=== PATIENT | female | born 1950 | race Caucasian/White ===

== ENCOUNTER 2025-04-18 06:00 | Observation (INO) | payer MEDICARE, MEDICAID ==
[2025-04-11 14:22] LABS: MEAN PLATELET VOLUME 7.8 FL (7.4-10.4); PRE OP HEMATOCRIT 41.8 % (35.0-45.0); PRE OP HEMOGLOBIN 14.0 g/dL (12.0-16.0); PRE OP PLATELET COUNT 288 X10'3 (140-440); PRE OP WHITE BLOOD COUNT 6.0 10'3 (4.8-10.8); RED CELL DISTRIBUTION WIDTH 16.6 % (11.5-14.5)
[2025-04-11 14:49] LABS: CREATININE 0.68 MG/DL (0.40-0.90); PRE OP ALT 22 U/L (30-65); PRE OP ANION GAP 4 (8-16); PRE OP AST 20 U/L (10-37); PRE OP BILIRUB, TOTAL 0.2 MG/DL (0.0-1.0); PRE OP GLUCOSE 87 MG/DL (70-104); PRE OP POTASSIUM 4.2 MMOL/L (3.4-5.1); PRE OP SODIUM 141 MMOL/L (135-145); TOTAL CARBON DIOXIDE 32.1 MMOL/L (24-32); eGFR 85 ML/MIN
[2025-04-18] VITALS (22 sets, daily range): BP systolic 112–155; BP diastolic 64–92; PULSE 88–96; RESP 12–17; TEMP 97.4–98.1; O2SAT 93–99
[~2025-04-18] VITALS: Ht 157.5 cm; Wt 70.3 kg
[~2025-04-18 06:00] MED LIST: FURO20TA4 PO; HYDR-3973 PO; POTA-206 PO
[2025-04-18] MEDS ORDERED: BUPIVAcaine/PF 2.5mg/ml (0.25%) 10ml vial ONE (06:42)
[2025-04-18] MEDS ORDERED: LIDOcaine 1% 30ml preserv. free vial ONE (06:43)
[2025-04-18] MEDS ORDERED: BUPIVAcaine 2.5mg/ml inj 50ml vial (contains preservative) ONE (07:05)
[2025-04-18] MEDS: ringers solution, lacted 1,000 ML IV SCH ×2 (07:06→07:50)
[2025-04-18] MEDS: ceFAZolin 2gm/dext,iso 50mL 50 ML IV ONE (07:07)
[2025-04-18] MEDS ORDERED: ondansetron/PF 4mg/2ml inj IV PRN ×2 (07:50→10:25)
[2025-04-18] MEDS ORDERED: fentaNYL/PF 50MCG/1 ML 2ML syringe IV PRN (07:50)
[2025-04-18] MEDS ORDERED: acetaminophen 1,000mg/100ml IV 100 ML IV PRN (07:50)
[2025-04-18] MEDS ORDERED: HYDROmorphone/PF 0.2 MG/ML SYRINGE IV PRN (07:50)
[2025-04-18] MEDS ORDERED: labetalol 20mg/4ml (5mg/ml) syringe IV PRN (07:50)
[2025-04-18] MEDS ORDERED: hydrALAZINE 20mg/ml inj. IV PRN (07:50)
[2025-04-18] MEDS ORDERED: midazolam 1 mg/ML 2ml injection ONE (07:56)
--- NOTE | 2025-04-18 08:01 | HISTORY AND PHYSICAL ---
History & Physical Providers to CC ~ History of Present Illness Reason for Admit\Complaint: Paraesophageal hernia repair History of Present Illness Interval history and physical exam Patient here today for elective repair of her paraesophageal hernia She was seen in the office greater than 30 days ago She denies any change in her past medical history (please see previous history and physical exam for all pertinent details) She is scheduled for robotic assisted, laparoscopic paraesophageal hernia repair with mesh Given her COPD and cardiac history, we will be observing her overnight Allergies: Coded Allergies: morphine (Verified Allergy, Unknown, TURN PALE AND ITCH, 04/17/25) Home Medications Home Medications Active Reported K-Dur (Potassium Chloride) 10 Meq Tab.prt.sr 1 Tab PO DAILY PRN Furosemide 20 Mg Tablet 1 Tab PO DAILY PRN Hydrocodone-Apap 10-325 Tablet (Acetaminophen/Hydrocodone Bitart) 10mg/325mg Tablet 1 Tab PO 5X/DAY PRN Exam General: 75-year-old female in no acute distress Chest: Lungs clear to auscultation bilaterally with prolonged expiratory phase Cardiovascular: Regular rate and rhythm without murmur Abdomen: Soft and nondistended Problems: (1) Paraesophageal hernia Assessment & Plan: The risks, benefits, and alternatives to a robotic assisted, laparoscopic paraesophageal hernia repair with mesh were discussed with the patient. Risks include, but are not limited to, bleeding, infection, injury to intra-abdominal structures, hernia recurrence, dysphagia and the need for additional surgical procedures. Patient verbalized understanding and wishes to proceed with surgery. We will do so today as scheduled LANNY EVANS MD Apr 18, 2025 08:01
[2025-04-18] MEDS: LIDOcaine 1% 30ml preserv. free vial IJ ONE (08:24)
[2025-04-18] MEDS: BUPIVAcaine/PF 2.5 mg/ml (0.25%) 30ml vial IJ ONE (08:25)
[2025-04-18] MEDS ORDERED: 0.9 % SODIUM CHLORIDE 10 ML VIAL ONE (08:35)
[2025-04-18] MEDS ORDERED: dexamethasone sod phosphate 4mg/ml inj. ONE (08:35)
[2025-04-18] MEDS ORDERED: propofol inj 20 ML IV ONE (08:35)
[2025-04-18] MEDS ORDERED: fentaNYL /PF 50mcg/ml 5ml ampule ONE (08:35)
[2025-04-18] MEDS ORDERED: ondansetron/PF 4mg/2ml inj ONE (08:35)
[2025-04-18] MEDS ORDERED: rocuronium 10mg/ml inj IV ONE (08:36)
[2025-04-18] MEDS ORDERED: LIDOcaine 2% (20mg/ml) 5ml vial ONE (08:36)
[2025-04-18] MEDS ORDERED: ePHEDrine 50MG/ML INJ. ONE (08:36)
[2025-04-18] MEDS: normal saline 1000ml 1,000 ML IV SCH (10:25)
[2025-04-18] MEDS: HYDROmorph/NS 0.2 mg/ml PCA 100 ML IV SCH (11:00)
[2025-04-18] MEDS: HYDROmorphone/PF 0.2 MG/ML SYRINGE IV PRN (11:22)
[2025-04-18] MEDS: fentaNYL/PF 50MCG/1 ML 2ML syringe IV PRN (11:28)
--- NOTE | 2025-04-18 12:31 | RADIOLOGY REPORT ---
CHEST RADIOGRAPH Indication: POST OP Technique: Single frontal view of the chest was obtained Comparison: None FINDINGS: Subcutaneous emphysema with possible pneumomediastinum. This could be postsurgical in nature. Possible free intraperitoneal air below the right hemidiaphragm. Subcutaneous air along the left chest wall. Correlate with surgical history. IMPRESSION: Subcutaneous emphysema with possible pneumomediastinum. This could be postsurgical in nature. Possible free intraperitoneal air below the right hemidiaphragm. Subcutaneous air along the left chest wall. Correlate with surgical history.
--- NOTE | 2025-04-18 12:48 | OPERATIVE REPORT ---
Operative Report Providers to CC CC: TYLER EVANS MD ~ Date of Procedure: Apr 18, 2025 Pre-Operative Diagnosis: paraesophageal hernia Post-Operative Diagnosis SAME as PRE-Op Procedure Performed Robotic assisted, laparoscopic paraesophageal hernia repair with mesh Surgeon: Tyler Evans MD FACS Tack Picker None Anesthesiologist: Dorothea Guzman Type of Anesthesia: General Findings: Large type 3 paraesophageal hernia with a proximally 25% of the stomach herniated above the mediastinum Wound class I Complications None Prosthetics\Implants used: Phasix mesh Estimated Blood Loss: 10 cc Specimen Removed: Hernia sac excised and discarded Description of Procedure: Patient was brought to the operating room and identified by the nursing staff and the attending physician. Patient was placed supine and general anesthesia was induced. Preoperative antibiotics were given. Carter catheter was placed. The abdomen was prepped and draped in the standard sterile fashion. At [place]'s ione, Veress needle technique was used through a stab incision to access and insufflate the abdomen. This was accomplished without incident. An optical, 12 mm trocar was used to gain access to the abdomen in the left upper quadrant under laparoscopic visualization. Additional 8.5 mm robotic trochars were placed under laparoscopic visualization in the left lateral upper abdomen, left epigastrium and right upper quadrant. Patient was placed in steep, reverse Trendelenburg position. The da Duane robotic arm was docked to the patient and instruments guided into the abdomen under laparoscopic visualization. The left lobe of the liver was lifted and the hiatus inspected. Fairly large hiatal defect was noted. There appeared to be about 25% of the stomach above the hiatal opening. An 18 inch, 0, V-Loc suture was used to sling the left lobe of the liver up to the anterior abdominal wall. With the stomach retracted towards the patient's left upper quadrant, dissection was initiated along the pars flaccida and the lesser sac was entered. The lesser omentum was divided up to the right lissette. There was not a replaced left hepatic artery. Dissection was carried in to the mediastinum. The mediastinal space was entered. Dissection was then carried posteriorly along the right lissette, taking care to leave peritoneum overlying the muscles. Once the posterior decussation was encountered, attention was then turned to the short gastric vessels. Stomach was retracted toward the patient's right and the short gastric vessels were placed on tension. The short gastric vessels were divided along the upper portion of the greater curvature, up to the phrenoesophageal ligament which was also then divided. The peritoneal reflection of the left lissette was opened and dissection carried up until the apex of the crura was reached. Dissection was carried up into the mediastinum, mobilizing the esophagus from the retrocardiac space and taking care not to injure the bilateral pleura. The entire hernia sac which was quite large, in size, was mobilized out of the mediastinum and reduced into the abdomen. Excess sac was dissected at the level of the gastroesophageal fat pad and set aside. The retroesophageal space was developed. The GE junction was retracted anteriorly and the mediastinal dissection was carried out posterior to the esophagus. Dissection continued until at least 3 cm of intra-abdominal esophagus was obtained without any retraction on the stomach. With the stomach retracted anteriorly, adequate space and visualization was obtained to allow for the crural repair. Strips of bioabsorbable, Phasix mesh were used to reinforce the crural repair. A strip of mesh was placed over each crura and used for reapproximation without tension. Attention was then turned to the gastropexy. Fundus was anchored to the upper left portion of the hiatus with full-thickness crural sutures. The suture was then run along the greater curvature creating a gastropexy to the anterior a bdominal wall. Care was taken to stay medial to the phrenic nerve and vascular bundle. About a fourth of the gastric fundus was anchored to the anterior abdominal wall. Attention was then turned to the modified Hill procedure/augmentation stitch. The angle of His was then recreated with a running, 2/0, absorbable, V-Loc suture. This was run between the fundus and the lateral border of the intra-abdominal esophagus. This suture was run up to the level of the left lissette. Gastropexy was then completed by running the midportion of the gastric fundus towards the initial gastropexy suture and anchoring the 2 together. [place] and sutures were retrieved. The da Duane robotic arm was undocked from the patient. The 12 mm port was removed and the fascial defect closed percutaneously with 0 Vicryl suture. Remaining ports were removed and the abdomen was allowed to deflate. Skin was closed at all sites with 4-0 Monocryl sutures and dressed with Dermabond. Patient was extubated and transferred to the postanesthesia care unit in stable condition.. Counts repoted as correct: Yes TYLER EVANS MD Apr 18, 2025 12:48
[2025-04-18] MEDS: heparin, porcine 5000 units/ml vial SQ SCH (20:22)
[2025-04-19 02:00] VITALS: BP 115/79; PULSE 92; RESP 20; TEMP 98.2; O2SAT 92
[2025-04-19 05:00] VITALS: BP 121/64; PULSE 90; RESP 14; TEMP 97.8; O2SAT 92
[2025-04-19] MEDS: oxyCODONE/APAP 5-325mg tablet PO ONE (08:48)
[2025-04-19] MEDS: PCA WASTE DOCUMENTATION 1 MG ML MC SCH (09:35)
[2025-04-19 10:00] VITALS: BP 125/60; PULSE 95; RESP 18; TEMP 98.2; O2SAT 93
[2025-04-19 11:25] VITALS: RESP 16
[2025-04-19] MEDS: oxyCODONE/APAP 5-325mg tablet PO PRN (15:22)
[2025-04-19 16:22] VITALS: RESP 16
[2025-04-19] MEDS ORDERED: PER5325T PO (17:24)
--- NOTE | 2025-04-19 17:28 | DISCHARGE SUMMARY ---
Discharge Summary Providers to CC CC: TYLER EVANS MD ~ Discharge Summary Admission Diagnosis: paraesophageal hernia Hospital Course DATE OF ADMISSION: April 18, 2025 DATE OF DISCHARGE: April 19, 2025 Discharge Diagnosis\Comment: Paraesophageal hernia Operations\Procedures: Robotic assisted, laparoscopic paraesophageal hernia repair with mesh Consultants: Tyler Evans MD FACS Complications: None Condition on DC: Stable New Medications: Oxycodone Hcl/Acetaminophen 5/325 MG* (Percocet 5/325 MG*) 5 Mg/325 Mg Tablet 1 TAB PO Q4H PRN for moderate or severe pain 4-10 for 5 Days, #30 TAB Continued Medications: Furosemide (Furosemide) 20 Mg Tablet 1 TAB PO DAILY PRN for EDEMA Potassium Chloride (K-Dur) 10 Meq Tab.prt.sr 1 TAB PO DAILY PRN for potassium 3.1 - 3.4 Discontinued Medications: Hydrocodone Bit/Acetaminophen (Hydrocodone-Apap 10-325 Tablet) 10mg/325mg Tablet 1 TAB PO 5X/DAY PRN for pain Discharge Summary: Patient was admitted for observation and pain control following robotic assisted, laparoscopic paraesophageal hernia repair with mesh where she was found to have a very large type 3 paraesophageal hernia with a proximally 25% of the stomach above the hiatus. Patient had some issues with pain control throughout postoperative day 1, likely related to chronic pain and daily prescribed narcotic use. Ultimately, she was deemed ready for discharge home, tolerating full liquid diet and pain controlled with a slight increase in her pain medication. She will follow up in the office in two weeks *Problems/Diagnosis: (1) Paraesophageal hernia Total Time Spent on D/C: Up to 30 Minutes Counseling Services Smoking & Tobacco Cessation: N/A TYLER EVANS MD Apr 19, 2025 17:28
== END 2025-04-19 18:50 | disposition home or self-care (01) ==
LOC: PAS 06:00 → PAS IN 10:29 → SUR 3N 11:30
PROVIDERS: ADMIT Surgery; ATTEND Surgery
DX: K44.9 Diaphragmatic hernia without obstruction or gangrene (principal); G89.29 Other chronic pain; J44.9 Chronic obstructive pulmonary disease, unspecified; Z88.5 Allergy status to narcotic agent; Z79.899 Other long term (current) drug therapy; Z98.890 Other specified postprocedural states
CPT/HCPCS: 43282; 80053; 82948; 96374; 96375; A4615; A4618; C1781; G0378; J1171; J3490; J7120; 36415; 71045; 85025; 87081; J1100; J1644; J2003; J2250; J2405; J2704; J3010; J7030